=== PATIENT | male | born 1955 | race African-American/Black ===

== ENCOUNTER 2018-04-28 21:06 | Emergency (ER) | payer SELFPAY ==
--- NOTE | 2018-04-28 23:24 | EDPHYS ---
Physician Documentation [facility] Name: Mukul Staples Age: 63 yrs Sex: Male : 1955 Arrival Date: 04/28/2018 Time: 21:28 Bed 16 Private MD: ED Physician Adam Charles HPI: 04/28 22:03 This 63 yrs old Black Male presents to ER via Ambulatory with complaints of TEETH kb PULLED BLEEDING. 22:04 The patient presents with bleeding. The problem is located in the upper right lateral kb incisor, upper right central incisor, upper left central incisor and upper left lateral incisor. Onset: The symptoms/episode began/occurred this morning. Duration: The symptoms are continuous. Modifying factors: The symptoms are alleviated by nothing, the symptoms are aggravated by nothing. Associated signs and symptoms: The patient has no apparent associated signs or symptoms. Severity of symptoms: At their worst the symptoms were mild, moderate, in the emergency department the symptoms are unchanged. The patient has not experienced similar symptoms in the past. The patient has been recently seen by a physician: earlier today. Pt had last 5 teeth pulled today. Started bleeding when he got home so he went back to the dentist, they "did something to stop the bleeding" and sent him back home. Woke up from a nap bleeding again. Pt biting down on tea bag. Historical: - Allergies: 21:48 No Known Allergies; jd3 - Home Meds: 21:48 "blood pressure med" [Active]; "prostate med" [Active]; jd3 - PMHx: 21:48 enlarged prostate; Heart Murmur; jd3 - PSHx: 21:48 None; jd3 - Immunization history:: Adult Immunizations up to date, Flu vaccine is not up to date. - Social history:: Smoking status: Patient/guardian denies using tobacco. - Ebola Screening: : Patient negative for fever greater than or equal to 101.5 degrees Fahrenheit, and additional compatible Ebola Virus Disease symptoms. ROS: 22:03 Constitutional: Negative for fever, chills, and weight loss, Cardiovascular: Negative kb for chest pain, palpitations, and edema, Respiratory: Negative for shortness of breath, cough, wheezing, and pleuritic chest pain, Abdomen/GI: Negative for abdominal pain, nausea, vomiting, diarrhea, and constipation, MS/Extremity: Negative for injury and deformity, Skin: Negative for injury, rash, and discoloration, Neuro: Negative for headache, weakness, numbness, tingling, and seizure. 22:03 ENT: Positive for bleeding gums. Exam: 22:01 Constitutional: This is a well developed, well nourished patient who is awake, alert, kb and in no acute distress. Head/Face: Normocephalic, atraumatic. Chest/axilla: Normal chest wall appearance and motion. Nontender with no deformity. No lesions are appreciated. Cardiovascular: Regular rate and rhythm with a normal S1 and S2. No gallops, murmurs, or rubs. Normal PMI, no JVD. No pulse deficits. Respiratory: Lungs have equal breath sounds bilaterally, clear to auscultation and percussion. No rales, rhonchi or wheezes noted. No increased work of breathing, no retractions or nasal flaring. Abdomen/GI: Soft, non-tender, with normal bowel sounds. No distension or tympany. No guarding or rebound. No evidence of tenderness throughout. Skin: Warm, dry with normal turgor. Normal color with no rashes, no lesions, and no evidence of cellulitis. MS/ Extremity: Pulses equal, no cyanosis. Neurovascular intact. Full, normal range of motion. Neuro: Awake and alert, GCS 15, oriented to person, place, time, and situation. Cranial nerves II-XII grossly intact. Motor strength 5/5 in all extremities. Sensory grossly intact. Cerebellar exam normal. Normal gait. 22:01 ENT: Dental exam: missing teeth, diffusely, bleeding noted to gums. Vital Signs: 21:48 BP 150 / 95; Pulse 92; Resp 17 S; Temp 98.2(O); Pulse Ox 100% on R/A; Weight 77.11 kg jd3 (R); Height 6 ft. 0 in. (182.88 cm) (R); Pain 7/10; 22:29 BP 141 / 94; Pulse 90; Resp 18; Pulse Ox 99% ; rr5 23:06 BP 139 / 80; Pulse 66; Resp 17; Pulse Ox 99% ; rr5 21:48 Body Mass Index 23.06 (77.11 kg, 182.88 cm) jd3 MDM: 21:44 Patient medically screened. kb 22:01 Data reviewed: vital signs, nurses notes. Data interpreted: Pulse oximetry: on room air kb is 100 %. Interpretation: normal. 23:22 Counseling: I had a detailed discussion with the patient and/or guardian regarding: the kb historical points, exam findings, and any diagnostic results supporting the discharge/admit diagnosis, the need for outpatient follow up, a dentist, to return to the emergency department if symptoms worsen or persist or if there are any questions or concerns that arise at home. ED course: Bleeding controlled after rinsing with ice water and applying pressure with gauze. Administered Medications: No medications were administered Disposition: 04/29 07:33 Co-signature as Attending Physician, Adam Charles MD I agree with the assessment and alexa plan of care. Disposition: 04/28/18 23:22 Discharged to Home. Impression: Bleeding gums after tooth extraction - resolved. - Condition is Stable. - Discharge Instructions: Dental Extraction, Care After, [id number]. - Medication Reconciliation Form, Thank You Letter, Antibiotic Education, Prescription Opioid Use form. - Follow up: Emergency Department; When: As needed; Reason: Worsening of condition. Follow up: Private Physician; When: 2 - 3 days; Reason: Recheck today's complaints, Continuance of care, Re-evaluation by your physician. Signatures: Suzie Huerta, SUPERVISOR [employer]PLANE FLIGHT ATTENDANT-C SUPERVISOR [employer]PLANE FLIGHT ATTENDANT-Gentryb Adam Charles MD MD cha Davies, Jonathon, RN RN jd3 Duane Ballard RN RN rr5 Corrections: (The following items were deleted from the chart) 00:00 04/28 23:22 04/28/2018 23:22 Discharged to Home. Impression: Bleeding gums after tooth rr5 extraction - resolved. Condition is Stable. Forms are Medication Reconciliation Form, Thank You Letter, Antibiotic Education, Prescription Opioid Use. Follow up: Emergency Department; When: As needed; Reason: Worsening of condition. Follow up: Private Physician; When: 2 - 3 days; Reason: Recheck today's complaints, Continuance of care, Re-evaluation by your physician. kb
--- NOTE | 2018-04-28 23:24 | ER ---
Nurse's Notes [facility] Name: Mukul Staples Age: 63 yrs Sex: Male : 1955 Arrival Date: 04/28/2018 Time: 21:28 Bed 16 Private MD: Diagnosis: Bleeding gums after tooth extraction - resolved Presentation: 04/28 21:43 Presenting complaint: Patient states: "I went to the dentist today and they pulled 5 jd3 teeth. I took a nap and woke up with a lot of bleeding in my mouth.". Transition of care: patient was not received from another setting of care. Onset of symptoms was April 28, 2018. Risk Assessment: Do you want to hurt yourself or someone else? Patient reports no desire to harm self or others. Initial Sepsis Screen: Does the patient meet any 2 criteria? No. Patient's initial sepsis screen is negative. Does the patient have a suspected source of infection? No. Patient's initial sepsis screen is negative. Care prior to arrival: None. 21:43 Method Of Arrival: Ambulatory j 21:43 Acuity: CAMILLA 3 jd3 Historical: - Allergies: 21:48 No Known Allergies; jd3 - Home Meds: 21:48 "blood pressure med" [Active]; "prostate med" [Active]; jd3 - PMHx: 21:48 enlarged prostate; Heart Murmur; jd3 - PSHx: 21:48 None; jd3 - Immunization history:: Adult Immunizations up to date, Flu vaccine is not up to date. - Social history:: Smoking status: Patient/guardian denies using tobacco. - Ebola Screening: : Patient negative for fever greater than or equal to 101.5 degrees Fahrenheit, and additional compatible Ebola Virus Disease symptoms. Screenin:49 Abuse screen: Denies threats or abuse. Nutritional screening: No deficits noted. jd3 Tuberculosis screening: No symptoms or risk factors identified. Fall Risk Ambulatory Aid- None/Bed Rest/Nurse Assist (0 pts). Gait- Normal/Bed Rest/Wheelchair (0 pts) Mental Status- Oriented to own ability (0 pts). Total Renee Fall Scale indicates No Risk (0-24 pts). Assessment: 21:40 General: Appears in no apparent distress. comfortable, Behavior is calm, cooperative, rr5 appropriate for age. Pain: Complains of pain in upper right cuspid, upper right central incisor, upper left central incisor and upper left lateral incisor Pain does not radiate. Pain currently is 6 out of 10 on a pain scale. Quality of pain is described as aching, Pain began gradually, Is intermittent. Neuro: Level of Consciousness is awake, alert, obeys commands, Oriented to person, place, time, situation. Cardiovascular: Denies chest pain, Capillary refill < 3 seconds Patient's skin is warm and dry. Respiratory: Airway is patent Respiratory effort is even, unlabored, Respiratory pattern is regular, symmetrical. GI: No signs and/or symptoms were reported involving the gastrointestinal system. : No signs and/or symptoms were reported regarding the genitourinary system. EENT: bleeding on the upper incisor noted. post tooth extraction. 21:40 Derm: Skin is intact, Skin temperature is warm. Musculoskeletal: Capillary refill < 3 rr5 seconds, Range of motion: intact in all extremities. 22:20 Reassessment: Patient appears in no apparent distress at this time. No changes from rr5 previously documented assessment. Patient and/or family updated on plan of care and expected duration. Pain level reassessed. mouthwash by cold water with ice done. ice compress applied. bleeding stopped Patient states feeling better. Patient states symptoms have improved. 23:05 Reassessment: Patient appears in no apparent distress at this time. No changes from rr5 previously documented assessment. Patient and/or family updated on plan of care and expected duration. Pain level reassessed. mild bleeding noted. 23:50 Reassessment: Patient appears in no apparent distress at this time. Patient and/or rr5 family updated on plan of care and expected duration. Pain level reassessed. discharge instruction given and explained without complaints made. Patient states feeling better. Patient states symptoms have improved. Vital Signs: 21:48 BP 150 / 95; Pulse 92; Resp 17 S; Temp 98.2(O); Pulse Ox 100% on R/A; Weight 77.11 kg jd3 (R); Height 6 ft. 0 in. (182.88 cm) (R); Pain 7/10; 22:29 BP 141 / 94; Pulse 90; Resp 18; Pulse Ox 99% ; rr5 23:06 BP 139 / 80; Pulse 66; Resp 17; Pulse Ox 99% ; rr5 21:48 Body Mass Index 23.06 (77.11 kg, 182.88 cm) [facility] ED Course: 21:28 Patient arrived in ED. es 21:44 Suzie Huerta FNP-C is [facility]. kb 21:44 Adam Charles MD is Attending Physician. kb 21:46 Triage completed. jd3 21:49 Arm band placed on. jd3 21:49 Patient has correct armband on for positive identification. Bed in low position. Call [facility] light in reach. Side rails up X 1. Adult w/ patient. 21:50 Pulse ox on. NIBP on. rr5 22:24 Duaen Ballard, RN is Primary Nurse. rr5 23:55 No provider procedures requiring assistance completed. Patient did not have IV access rr5 during this emergency room visit. Administered Medications: No medications were administered Outcome: 23:22 Discharge ordered by . kb 23:55 Discharged to home ambulatory, with family. rr5 23:55 Condition: improved 23:55 Condition: stable 23:55 Discharge instructions given to patient, family, Instructed on discharge instructions, follow up and referral plans. Demonstrated understanding of instructions, follow-up care. 08 00:00 Patient left the ED. rr5 Signatures: Suzie Huerta FNP-C FNP-Sariah Wagner Jonathon, RN RN jDuane Wilson, RN RN rr5
[2018-04-29 09:55] VITALS: TEMP 98.2
[2018-04-29 10:04] VITALS: O2SAT 99
[2018-04-29 10:06] VITALS: BP 139/80
== END 2018-04-29 | disposition home or self-care (01) ==
LOC: ER 21:06
DX: K91.840 Postprocedural hemorrhage of a digestive system organ or structure following a digestive system procedure (principal)
CPT/HCPCS: 99283